=== PATIENT | male | born 2000 | race Native Hawaiian/Other Pacific Islander ===

== ENCOUNTER 2020-04-21 02:09 | Emergency (ER) | payer OTHER ==
[~2020-04-21] VITALS: Ht 182.9 cm; Wt 63.5 kg
[~2020-04-21 02:09] MED LIST: AZIT200S PO; BENADRYL25 M1 OR; BROMFED DM OR; CLARITIN10 M1 PO; CLONIDINE0.1 MG PO
[2020-04-21 03:10] VITALS: BP 148/68; TEMP 98.1
== END 2020-04-21 07:59 | disposition home or self-care (01) ==
LOC: ED 02:09
DX: M25.571 Pain in right ankle and joints of right foot (principal); X50.9XXA Other and unspecified overexertion or strenuous movements or postures, initial encounter; Y93.67 Activity, basketball; Y92.89 Other specified places as the place of occurrence of the external cause
CPT/HCPCS: 87651; 99282